=== PATIENT | female | born 1940 | race Caucasian/White ===

== ENCOUNTER 2025-01-20 08:16 | Day surgery (SDC) | payer MEDICARE, BC ==
--- NOTE | 2025-01-15 13:58 | ELECTROCARDIOGRAPH REPORT ---
[facility] Test Date: 2025-01-15 Test Time: 13:56:03 Pat Name: ERYN STOKES Department: [facility]-PRE-OP Patient ID: [facility]-[id number] Room: Gender: F [employer] Engineer: RENEA : 1940 Requested By: ELMER LISA Order Number: [id number] Reading MD: Dr. BRENDON Linda Measurements Intervals [place] Rate: 68 P: 68 ND: 190 QRS: 49 QRSD: 84 T: 65 QT: 412 QTc: 439 Interpretive Statements Sinus rhythm Electronically Signed On 01-15-2025 19:01:[address] BRENDON Linda Please click the below link to view image of tracing.
[2025-01-15 15:18] LABS: BASOPHILS % (AUTO) 0.3 % (0-1); EOSINOPHILS # (AUTO) 0.1 X10'3 (0-0.9); EOSINOPHILS % (AUTO) 1.1 % (0-6); LYMPHOCYTES # (AUTO) 1.4 X10'3 (1.1-4.8); LYMPHOCYTES % (AUTO) 24.9 % (21-51); MEAN CORPUSCULAR HEMOGLOBIN 31.3 PG (27.0-31.0); MEAN CORPUSCULAR HGB CONC 34.8 g/dL (33.0-36.5); MEAN PLATELET VOLUME 7.2 FL (7.4-10.4); MONOCYTES # (AUTO) 0.6 X10'3 (0-0.9); MONOCYTES % (AUTO) 9.8 % (2-12); NEUTROPHILS # (AUTO) 3.7 X10'3 (1.8-7.7); NEUTROPHILS % (AUTO) 63.9 % (42-75); PRE OP HEMATOCRIT 39.1 % (35.0-45.0); PRE OP HEMOGLOBIN 13.6 g/dL (12.0-16.0); PRE OP PLATELET COUNT 175 X10'3 (140-440); PRE OP WHITE BLOOD COUNT 5.7 10'3 (4.8-10.8); RED BLOOD COUNT 4.35 X10'6 (4.20-5.60); RED CELL DISTRIBUTION WIDTH 12.9 % (11.5-14.5)
[2025-01-15 15:37] LABS: ALBUMIN 3.3 G/DL (3.4-5.0); ALKALINE PHOSPHATASE 45 IU/L (46-116); BLOOD UREA NITROGEN 19 MG/DL (7-18); BUN/CREATININE RATIO 24.4 (10.0-20.0); CALCIUM 8.8 MG/DL (8.5-10.1); CHLORIDE 103 MMOL/L (99-107); CREATININE 0.78 MG/DL (0.40-0.90); PRE OP ALT 26 U/L (30-65); PRE OP ANION GAP 5 (8-16); PRE OP AST 17 U/L (10-37); PRE OP BILIRUB, TOTAL 0.4 MG/DL (0.0-1.0); PRE OP GLUCOSE 132 MG/DL (70-104); PRE OP SODIUM 140 MMOL/L (135-145); TOTAL CARBON DIOXIDE 31.6 MMOL/L (24-32); TOTAL PROTEIN 6.5 G/DL (6.4-8.2); eGFR 71 ML/MIN
[2025-01-15 15:49] LABS: PRE OP POTASSIUM 3.2 MMOL/L (3.4-5.1)
[~2025-01-20] VITALS: Ht 157.5 cm; Wt 61.2 kg
[2025-01-20] VITALS (11 sets, daily range): BP systolic 137–183; BP diastolic 62–78; PULSE 54–70; RESP 13–16; TEMP 97.8; O2SAT 93–98
[~2025-01-20 08:16] MED LIST: AMLO5TAB PO; ASPI-1071 PO; ATOR20TA66 PO; BUSP10TA3 PO; ESTR42.510 VG; LIPA1CAP18 PO; LOSA1TAB41 PO; PANT40TA54 PO; PARO30TA4 PO
[2025-01-20] MEDS ORDERED: LIDOcaine 1% (10mg/ml) 2ml vial ONE (09:10)
[2025-01-20] MEDS: ceFAZolin 2gm in dextrose, iso 50 ML IV ONE (09:16)
[2025-01-20] MEDS: ringers solution, lacted 1,000 ML IV SCH (09:18)
[2025-01-20] MEDS: famotidine 20mg tablet PO ONE (09:18)
[2025-01-20] MEDS ORDERED: LIDOcaine 2% (20mg/ml) 5ml vial ONE (11:18)
[2025-01-20] MEDS ORDERED: BUPIVAcaine/PF 2.5mg/ml (0.25%) 10ml vial ONE (11:21)
[2025-01-20] MEDS ORDERED: morphine 2 MG/ML inj. syringe IV PRN (11:25)
[2025-01-20] MEDS ORDERED: morphine 4 MG/ML inj SYRINge IV PRN (11:25)
[2025-01-20] MEDS ORDERED: ondansetron/PF 4mg/2ml inj IV PRN (11:25)
[2025-01-20] MEDS ORDERED: HYDROmorphone/PF 0.2 MG/ML SYRINGE IV PRN ×2 (11:25)
[2025-01-20] MEDS ORDERED: ringers solution, lacted 1,000 ML IV SCH (11:25)
[2025-01-20] MEDS ORDERED: midazolam 1 mg/ML 2ml injection ONE (11:33)
[2025-01-20] MEDS ORDERED: propofol inj 20 ML IV ONE (11:33)
--- NOTE | 2025-01-20 13:35 | OPERATIVE REPORT ---
Operative Report Providers to ~ Date of Procedure: Jan 20, 2025 Pre-Operative Diagnosis: Right carpal tunnel and ring trigger finger Post-Operative Diagnosis Right wrist carpal tunnel syndrome, right ring trigger finger Procedure Performed Right wrist open carpal tunnel release, incision of tendon sheath A1 diane right ring finger trigger finger Surgeon: Bam Mendoza MD Pharmaceutical Process Engineer None Anesthesiologist: Elio Goins Type of Anesthesia: Other Findings: Estimated Blood Loss: None Specimen Removed: None Description of Procedure: The patient is a a 4-year-old woman with right carpal tunnel syndrome and right ring trigger finger refractory to nonsurgical treatment. Surgery is indicated to relieve symptoms. Consent was obtained from the patient and risks and benefits were explained. The patient was brought to the operating room where the arm was prepped and draped in usual manner. Local anesthetic was infiltrated just proximal to the carpal tunnel and just proximal to the planned trigger finger incision site and the forearm tourniquet was inflated to 250 mmHg. A 3 cm incision was made in the palm ulnar to the thenar crease in line with the radial side of the ring finger dissecting down to the transverse carpal ligament. A straight incision was made in line with the skin incision in the transverse carpal ligament and the median nerve was identified in the carpal canal. The nerve was protected while the ligament was divided distally to the transverse arch and proximally to the wrist crease followed by division of the forearm fascia. The nerve was decompressed at this point so the incision was irrigated and closed with nylon suture. A straight incision was made over the ring finger flexor tendon at the distal palm level. Dissection was taken down to the tendon sheath. The nerves were protected while the sheath was identified and cleared off of soft tissue. A midline incision was made dividing the A1 diane and exposing the tendons. The tendons were inspected and noted to be free of lesions. The incision was irrigated and closed with nylon suture. A sterile dressing was applied and the tourniquet was released. The hand perfused well and the patient was taken to the recovery room in stable condition. The patient tolerated the procedure well. BAM MENDOZA Jr., MD Jan 20, 2025 13:35
== END 2025-01-20 13:16 | disposition home or self-care (01) ==
LOC: PAS 08:16
PROVIDERS: ATTEND Orthopaedic Surgery Hand Surgery
DX: G56.01 Carpal tunnel syndrome, right upper limb (principal); M65.341 Trigger finger, right ring finger; M18.11 Unilateral primary osteoarthritis of first carpometacarpal joint, right hand; K21.9 Gastro-esophageal reflux disease without esophagitis; F32.A Depression, unspecified; E78.5 Hyperlipidemia, unspecified; I10 Essential (primary) hypertension; Z79.899 Other long term (current) drug therapy; Z98.49 Cataract extraction status, unspecified eye; Z90.710 Acquired absence of both cervix and uterus; Z85.828 Personal history of other malignant neoplasm of skin; Z88.2 Allergy status to sulfonamides; Z90.49 Acquired absence of other specified parts of digestive tract
CPT/HCPCS: 26055; 36415; 64721; 80053; 82948; 85025; 93005; A4215; A6449; J0690; J2003; J2250; J2704; J3490; J7030; J7120; Z7506; Z7512